=== PATIENT | female | born 1960 | race Caucasian/White ===

== ENCOUNTER 2017-07-23 10:28 | Inpatient (IN) | payer OTHER ==
[~2017-07-23] VITALS: Ht 165.1 cm; Wt 60.3 kg
[2017-07-23] MEDS ORDERED: LEVOTHYROXINE75 MCG PO (10:36)
--- NOTE | 2017-07-23 10:42 | ED UPPER/LOWER EXTREMITY COMPL ---
History of Present Illness General Chief Complaint: Fall Stated Complaint: RIGHT ARM PAIN, S/P FALL Source: patient Exam Limitations: no limitations Vital Signs & Intake/Output Vital Signs & Intake/Output Vital Signs Date Time Temp Pulse Resp B/P B/P Pulse O2 O2 Flow FiO2 Mean Ox Delivery Rate 07/23 1457 97.6 56 20 113/55 95 Room Air 07/23 1202 97.0 07/23 1038 97.0 60 16 169/91 98 Allergies Coded Allergies: NO KNOWN ALLERGIES (07/09/13) Reconcile Medications Levothyroxine Sodium 75 MCG TABLET 1 TAB PO DAILY HYPOTHYROID (Reported) Triage Note: 57F SLIPPED ON ICE AND FELL IN RIGHT SHOULDER, DENIES HEADSTRIKE. C/O PAIN TO RIGHT KNEE AND ANKLE AT THIS TIME. DENIES C-SPINE TENDERNESS. 04/10 PAIN. Triage Nurses Notes Reviewed? yes Onset: Abrupt Duration: constant Timing: single episode today Severity: severe Severity Numbers: 10 HPI: Patient is a 57-year-old female with past medical history of hypothyroidism who presents emergency and that while ambulating outside on ice she fell landed to the right lateral aspect of her body resulting acute onset of right shoulder right knee and ankle pain. Patient denies any preceding episode of lightheaded sensation or dizziness, denies any head strike headache neck or back pain denies any abdominal chest or hip pain. Patient does state that she was on her way to a calling our service for her [id number] which she states that earlier in the morning she did smoke marijuana (Vincent Doyle) Past History Travel History Traveled to [place] past 21 day No Medical History Any Pertinent Medical History? see below for history Neurological: NONE EENT: NONE Cardiovascular: NONE Respiratory: NONE Gastrointestinal: NONE Hepatic: NONE Renal: NONE Musculoskeletal: NONE Psychiatric: NONE Endocrine: hypothyroidism Surgical History Surgical History: non-contributory Psychosocial History What is your primary language Dutch Tobacco Use: Never used ETOH Use: denies use Illicit Drug Use: denies illicit drug use Family History Hx Contributory? No (Vincent Doyle) Review of Systems Review of Systems Constitutional: Reports: no symptoms. EENTM: Reports: no symptoms. Respiratory: Reports: no symptoms. Cardiovascular: Reports: no symptoms. Gastrointestinal/Abdominal: Reports: no symptoms. Genitourinary: Reports: no symptoms. Musculoskeletal: Reports: see HPI, joint pain, muscle pain. Skin: Reports: no symptoms. Neurological/Psychological: Reports: no symptoms. Hematologic/Endocrine: Reports: no symptoms. Immunological: Reports: no symptoms. All Other Systems: Reviewed and Negative (Vincent Doyle) Physical Exam Physical Exam General Appearance: moderate distress Head: atraumatic Eyes: Bilateral: normal appearance, PERRL. Ears, Nose, Throat: hearing grossly normal Neck: normal inspection, no midline tenderness Cardiovascular/Respiratory: normal breath sounds, normal peripheral pulses, no respiratory distress Peripheral Pulses: 2+ radial (R), 2+ radial (L), 2+ dorsalis pedis (R), 2+ dorsalis pedis (L) Back: normal inspection, no vertebral tenderness Shoulder Left: normal range of motion, normal inspection Shoulder Right: bone tenderness Elbow Left: normal range of motion, normal inspection Elbow Right: normal inspection Hand Left: normal inspection, normal range of motion Hand Right: normal inspection, normal range of motion Hip Left: normal range of motion, normal inspection Hip Right: normal range of motion, normal inspection Knee Left: normal inspection, tenderness Neurologic/Tendon: normal sensation, normal motor functions, normal tendon functions, responds to pain, no evidence tendon injury, no pulse deficit Skin: intact, normal color, warm/dry Comments: Right ankle - point tenderness noted mild swelling Right foot normal inspection nontender pedal pulse +2 (Vincent Doyle) Progress Differential Diagnosis: arterial insufficiency, compartment syndrome, contusion, dislocation, DVT, fracture, gout, septic arthritis, sprain, tendon injury Plan of Care: Orders Procedure Date/time Status Regular Diet 07/23 L Complete Nothing by Mouth 07/23 D Active CULTURE,URINE 07/23 1437 Active URINALYSIS 07/23 1437 Complete Pathway - chart 07/23 1413 Active Patient Data 07/23 1413 Active Code Status 07/23 1413 Active Patient Data 07/23 1409 Active Mckeon, Insertion/Removal/Asses 07/23 1258 Active OXYGEN SETUP (GEN) 07/23 1237 Active Saline Lock 07/23 1237 Active Vital Signs 07/23 1237 Active Activity/Ambulation 07/23 1237 Active Code Status 07/23 1237 Complete Durable Medical Equipment 07/23 1234 Active Add-on Test (ER Only) 07/23 1234 Active COMPREHENSIVE METABOLIC PANEL 07/23 1131 Complete CREATINE PHOSPHOKINASE 07/23 1131 Complete CBC WITHOUT DIFFERENTIAL 07/23 1131 Complete EKG 07/23 1131 Active PARTIAL THROMBOPLASTIN TIME 07/23 1130 Complete PROTHROMBIN TIME 07/23 1130 Complete TYPE & SCREEN (NOT X-MATCH) 07/[address] in observation 07/23 UNK Active VTE Mechanical Prophylaxis 07/23 UNK Active Vital Signs 07/23 UNK Active Intake & Output 07/23 UNK Active Mckeon, Insertion/Removal/Asses 07/23 UNK Active Activity/Ambulation 07/23 UNK Active Current Medications Sig/Андрей Start time Last Medication Dose Stop Time Status Admin Dextrose/Lactated 1,000 ML Q10H 07/23 1415 AC Ringer's (D5W in Lactated Ringers) Hydromorphone HCl 1 MG Q2-3 HRS NEEDED.. 07/23 1415 AC (Dilaudid) Lorazepam 0.5 MG Q4P PRN 07/23 141 AC (Ativan) Ondansetron HCl 4 MG Q6-PRN PRN 07/23 141 AC (Zofran) Laboratory Tests 07/23/17 1430: Urinalysis LIGHT H, Urine Color YEL, Urine Clarity HAZY H, Urine pH 6.5, Ur Specific [place] 1.020, Urine Protein NEG, Urine Ketones NEG, Urine Nitrite NEG, Urine Bilirubin NEG, Urine Urobilinogen 0.2, Ur Leukocyte Esterase NEG, Ur Microscopic SEDIMENT EXAMINED, Urine RBC RARE, Urine WBC 1-3 H, Ur Epithelial Cells FEW, Urine Bacteria FEW H, Urine Hemoglobin NEG, Urine Glucose NEG 07/23/17 1234: PT Cancelled, INR Cancelled, APTT Cancelled 07/23/17 1130: Anion Gap 15, Estimated GFR > 60, BUN/Creatinine Ratio 24.3, Glucose 158 H, Calcium 9.5, Total Bilirubin 0.3, AST 23, ALT 31, Alkaline Phosphatase 57, Creatine Kinase 118, Total Protein 7.5, Albumin 4.6, Globulin 2.9, Albumin/ Globulin Ratio 1.6, PT 11.5, INR 1.10, APTT 26, CBC w Diff NO MAN DIFF REQ, RBC 4.38, MCV 89.6, MCH 30.2, RDW 13.1, MPV 8.2, Gran % 80.6 H, Lymphocytes % 13.1 L, Monocytes % 4.7, Eosinophils % 1.2, Basophils % 0.4, Absolute Granulocytes 11.3 H, Absolute Lymphocytes 1.8, Absolute Monocytes 0.7 H, Absolute Eosinophils 0.2, Absolute Basophils 0.1, PUBS MCHC 33.8 Microbiology 07/23 1430 URINE ROUT: Urine Culture - RECD Patient's upper extremity and lower extremity the right side was neurovascularly intact however there is concerns of right shoulder fracture knee and ankle fracture on exam X-rays shows concerns of comminuted right humeral fracture with known anterior dislocation and right displaced fibular fracture Subtle findings of medial pole of patella avulsion fracture and medial malleoli fracture Discussed results with Dr. Martel who advised patient to receive CT scan noncontrast of the right shoulder have shoulder immobilizer placed knee immobilizer placed and posterior right ankle splint to be placed He advised patient to be nothing by mouth and will perform surgical correction of right ankle and reduction to right shoulder and the OR later on today Discussed disposition and results with patient who was aware Patient did have intermittent relief with pain medications Diagnostic Imaging: Viewed by Me: Radiology Read. Radiology Impression: acute abnormality, fracture Initial ED EK BPM,LVH Comments: PATIENT: MARIO TILLMAN PRESENT AGE: 57 PATIENT ACCOUNT NO: [id number] : 56 LOCATION: [facility] ORDERING PHYSICIAN: Vincent DON SERVICE DATE: 07/23/17 EXAM TYPE: RAD - XRY-TWO VIEW RIGHT ANKLE EXAMINATION: XR ANKLE, RIGHT CLINICAL INFORMATION: Pain status post fall. Rule out subluxation COMPARISON: None TECHNIQUE: AP, lateral, and mortise views of the right ankle. FINDINGS: There is an oblique Lainez B fracture of the distal fibula with posterolateral displacement of the distal fragment by 1 mm. There is a small age-indeterminate avulsion fracture fragment at the tip of the medial malleolus. There is widening of the medial joint space. Soft tissues are swollen. Moderate sized enthesopathic spur is present at the plantar fascial origin on the calcaneus. IMPRESSION: 1. Acute oblique minimally displaced Lainez B fracture of the distal fibula. 2. Small avulsion fracture at the tip of the medial malleolus, potentially acute. Subtle widening of the medial ankle mortise. DICTATED BY: Mejia Luna MD DATE/TIME DICTATED:07/23/171141 ADOPTION WORKER:SUZANNE DATE/TIME TRANSCRIBED:07/23/171141 CONFIDENTIAL, DO NOT COPY WITHOUT APPROPRIATE AUTHORIZATION. <Electronically signed in Other Vendor System> SIGNED BY: Mejia Luna MD 07/23/171147 PATIENT: MARIO TILLMAN PRESENT AGE: 57 PATIENT ACCOUNT NO: [id number] : 56 LOCATION: [facility] ORDERING PHYSICIAN: Vincent DON SERVICE DATE: 07/23/17 EXAM TYPE: RAD - XRY-KNEE, RIGHT EXAMINATION: XR KNEE, RIGHT CLINICAL INFORMATION: Pain after hyperextension and fall. Rule out subluxation. COMPARISON: None TECHNIQUE: AP, lateral, and both oblique views of the right knee. FINDINGS: Small ossific fragments are present at the medial margin of the patella, most compatible with a avulsion injury from the transient patellar subluxation. No additional fractures are identified. There is a small joint effusion. There is mild tricompartmental degenerative arthritis with marginal osteophytes. Articular surface irregularity is present at the patella with probable joint space narrowing. IMPRESSION: 1. Subtle avulsed cortical fragment at the medial margin of the patella, likely due to avulsion of the medial patellofemoral ligament attachment as part of a transient patellar dislocation/relocation injury. 2. Small effusion 3. Mild tricompartmental osteoarthritis, most notably in the patellofemoral compartment DICTATED BY: Mejia Luna MD PATIENT: MARIO TILLMAN PRESENT AGE: 57 PATIENT ACCOUNT NO: [id number] : 56 LOCATION: ER ORDERING PHYSICIAN: Vincent DON SERVICE DATE: 07/23/17 EXAMINATION: XR SHOULDER, RIGHT CLINICAL INFORMATION: Pain and immobility status post fall. Rule out subluxation COMPARISON: None TECHNIQUE: Three views of the right shoulder. FINDINGS: There is a comminuted fracture of the proximal humerus with an oblique/transverse component through the surgical neck and a sagittal component through the greater tuberosity. A lesser tuberosity component is not identified. As seen on the scapular Y view, there is apex posterior angulation of the humeral neck fracture by 55 degrees. Humeral shaft fragment by 1 cm. Displacement of the greater tuberosity fragment appears less pronounced. There is anterior dislocation of the humeral head at the glenohumeral joint. Acromioclavicular joint is unremarkable. Soft tissues are swollen. IMPRESSION: 1. Comminuted proximal humeral fracture with displacement and angulation at the humeral neck component, at least a Neer two-part fracture. 2. Anterior dislocation of the humeral head DICTATED BY: Mejia Luna MD DATE/TIME DICTATED:07/23/171143 ADOPTION WORKER:SUZANNE (Vincent Doyle) Departure Departure Disposition: STILL A PATIENT Condition: Stable Clinical Impression Primary Impression: Fracture of distal end of right fibula Secondary Impressions: Dislocation, shoulder, anterior, Fall, Fracture of medial malleolus of right tibia, Fracture of proximal end of right humerus, Right patella fracture Departure Forms: Customer Survey General Discharge Information Admission Note Spoke With: Ad Martel MD Documentation of Exam: Documentation of any treatments & extenuating circumstances including Concerns Regarding Discharge (functional status, medication knowledge or non-compliance, living conditions, etc.) that warrant an admission rather than observation: [ Patient requires IV pain management, surgical intervention, orthopedic consultation and possible short-term rehabilitation] (Vincent Doyle) PA/TREE KILLER Co-Sign Statement Statement: ED Attending supervision documentation- x I saw and evaluated the patient. I have also reviewed all the pertinent lab results and diagnostic results. I agree with the findings and the plan of care as documented in the PA's/TREE KILLER's documentation. Fall fx comminuted fx/dislocation R shoulder, patella, ankle [] I have reviewed the ED Record and agree with the PA's/TREE KILLER's documentation. [] Additions or exceptions (if any) to the PAs/TREE KILLER's note and plan are summarized below: [] (Jace RHODES,Shaquille) Procedures Splinting Location: RIGHT SHOULDER, KNEE AND ANKLE Manual Alignment Performed: No Pre-Made Type: knee imobilizer Hand-Made Type: orthoglass Splint Applied By: splint applied by other Pre-Proc Neuro Vasc Exam: normal Post-Proc Neuro Vasc Exam: normal (iVncent Doyle) Critical Care Note Critical Care Note Critical Care Time: 30-74 min (Vincent Doyle)
--- NOTE | 2017-07-23 11:46 | RADIOLOGY REPORT ---
EXAMINATION: XR KNEE, RIGHT CLINICAL INFORMATION: Pain after hyperextension and fall. Rule out subluxation. COMPARISON: None TECHNIQUE: AP, lateral, and both oblique views of the right knee. FINDINGS: Small ossific fragments are present at the medial margin of the patella, most compatible with a avulsion injury from the transient patellar subluxation. No additional fractures are identified. There is a small joint effusion. There is mild tricompartmental degenerative arthritis with marginal osteophytes. Articular surface irregularity is present at the patella with probable joint space narrowing. IMPRESSION: 1. Subtle avulsed cortical fragment at the medial margin of the patella, likely due to avulsion of the medial patellofemoral ligament attachment as part of a transient patellar dislocation/relocation injury. 2. Small effusion 3. Mild tricompartmental osteoarthritis, most notably in the patellofemoral compartment
--- NOTE | 2017-07-23 11:48 | RADIOLOGY REPORT ---
EXAMINATION: XR ANKLE, RIGHT CLINICAL INFORMATION: Pain status post fall. Rule out subluxation COMPARISON: None TECHNIQUE: AP, lateral, and mortise views of the right ankle. FINDINGS: There is an oblique Lainez B fracture of the distal fibula with posterolateral displacement of the distal fragment by 1 mm. There is a small age-indeterminate avulsion fracture fragment at the tip of the medial malleolus. There is widening of the medial joint space. Soft tissues are swollen. Moderate sized enthesopathic spur is present at the plantar fascial origin on the calcaneus. IMPRESSION: 1. Acute oblique minimally displaced Lainez B fracture of the distal fibula. 2. Small avulsion fracture at the tip of the medial malleolus, potentially acute. Subtle widening of the medial ankle mortise.
--- NOTE | 2017-07-23 11:51 | RADIOLOGY REPORT ---
EXAMINATION: XR SHOULDER, RIGHT CLINICAL INFORMATION: Pain and immobility status post fall. Rule out subluxation COMPARISON: None TECHNIQUE: Three views of the right shoulder. FINDINGS: There is a comminuted fracture of the proximal humerus with an oblique/transverse component through the surgical neck and a sagittal component through the greater tuberosity. A lesser tuberosity component is not identified. As seen on the scapular Y view, there is apex posterior angulation of the humeral neck fracture by 55 degrees. Humeral shaft fragment by 1 cm. Displacement of the greater tuberosity fragment appears less pronounced. There is anterior dislocation of the humeral head at the glenohumeral joint. Acromioclavicular joint is unremarkable. Soft tissues are swollen. IMPRESSION: 1. Comminuted proximal humeral fracture with displacement and angulation at the humeral neck component, at least a Neer two-part fracture. 2. Anterior dislocation of the humeral head
[2017-07-23 11:59] LABS: ABSOLUTE BASOPHIL COUNT 0.1 /CUMM (0.0-0.2); ABSOLUTE EOSINOPHIL COUNT 0.2 /CUMM (0.0-0.7); ABSOLUTE GRANULOCYTE CT 11.3 /CUMM (1.4-6.5); ABSOLUTE LYMPH COUNT 1.8 /CUMM (1.2-3.4); ABSOLUTE MONOCYTE COUNT 0.7 /CUMM (0.10-0.60); BASOPHIL % 0.4 % (0.0-2.0); EOSINOPHIL % 1.2 % (0-5); HEMATOCRIT 39.2 % (37-47); MEAN CORPUSCULAR HGB 30.2 PG (27.0-31.0); MEAN CORPUSCULAR HGB CONC 33.8 G/DL (33.0-37.0); MEAN CORPUSCULAR VOLUME 89.6 FL (81.0-99.0); MEAN PLATELET VOLUME 8.2 FL (7.4-10.4); PLATELET COUNT 304 /CUMM (130-400); RBC DISTRIBUTION WIDTH 13.1 % (11.5-14.5); RED BLOOD CELL CT 4.38 /CUMM (4.20-5.40)
[2017-07-23 12:14] LABS: GRANULOCYTE % 80.6 % (42.2-75.2)
[2017-07-23 12:54] LABS: PT 11.5 SEC (9.4-12.5); PTT 26 SEC (25-37)
--- NOTE | 2017-07-23 13:19 | Admission Core Measures ---
Acute Coronary Syndrome (CM) ACS Core Measures Acute Coronary Syndrome Diagnosis No Congestive Heart Failure (NEW) CHF Core Measures Congestive Heart Failure Diagnosis No Cerebrovascular Accident (NEW) CVA Core Measures CVA/TIA Diagnosis No Venous Thromboembolism VTE Core Karen (View Protocol) VTE Risk Factors Surgery No Mechanical VTE Prophylaxis d/t N/A MechProphylax Ordered No VTE Pharm Prophylaxis d/t NA PharmProphylax ordered Problem List As ranked by this Provider includes Assessment & Plan 1. Fracture of distal end of right fibula 2. Right patella fracture 3. Dislocation, shoulder, anterior 4. Fracture of proximal end of right humerus 5. Fracture of medial malleolus of right tibia 6. Fall HOME MEDS Home Med List Levothyroxine Sodium 75 MCG TABLET 1 TAB PO DAILY HYPOTHYROID (Reported)
--- NOTE | 2017-07-23 13:19 | History & Physical Pre-Op ---
Sena Goode 07/23/17 1318: General Information and HPI History of Present Illness: 57yoF presents to ED after mechanical slip and fall on the ice this morning. She was walking outside to nearby family member's home to attend family member's service, slipped on ice and lost her footing. She landed very hard on her right side, and complains of right shoulder and lower leg pain. She denies head injury or LOC. Denies CP/SOB/Palps/dizziness at time of fall. Her main complaint is right shoulder pain, and is unable to get comfortable despite pain medication in ED. She denies any other complaints at this time. 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 smokes MJ multiple times per day. Drinks 2-3 beers per day. No tobacco. Allergies/Medications Allergies: Coded Allergies: NO KNOWN ALLERGIES (07/09/13) Home Med list Levothyroxine Sodium 75 MCG TABLET 1 TAB PO DAILY HYPOTHYROID (Reported) Past History Medical History Endocrine: hypothyroidism Surgical History Pertinent Surgical History: laparoscopy x3 for [employer]person [employer] fertility workup Past Family/Social History Psychosocial History Smoking Status: Never Smoked (no tobacco use) ETOH Use: daily drinker, 2-3 beers Illicit Drug Use: marijuana (few times daily) Functional Ability Ambulation: independent Exam & Diagnostic Data Last 24 Hrs of Vital Signs/I&O Vital Signs Date Time Temp Pulse Resp B/P B/P Pulse O2 O2 Flow FiO2 Mean Ox Delivery Rate 07/23 1202 97.0 07/23 1038 97.0 60 16 169/91 98 Intake & Output 07/23 1600 07/23 0800 07/23 0000 Intake Total 120 Output Total Balance 120 Intake, Oral 120 Patient 133 lb Weight Physical Exam: gen- nad card-rrr pulm- no audible wheeze abd- soft nt ext: R shoulder: +edema, no mobility assessed due to pain/injury, very ttp. R elbow: limited motor due to pain R wrist: some edema medially, +edema at index/middle MCPs, no point tenderness, gross motor and sensation intact, palp radial pulse RLE: knee slightly ttp. in splint. ROM not assessed other than +toe movement. gross sensory intact toes. palp dp pulse. LLE: calf soft nt, no lesions, nontender Last 24 Hrs of Labs/Rishabh: Laboratory Tests 07/23/17 1234: PT Cancelled, INR Cancelled, APTT Cancelled 07/23/17 1130: Anion Gap 15, Estimated GFR > 60, BUN/Creatinine Ratio 24.3, Glucose 158 H, Calcium 9.5, Total Bilirubin 0.3, AST 23, ALT 31, Alkaline Phosphatase 57, Creatine Kinase 118, Total Protein 7.5, Albumin 4.6, Globulin 2.9, Albumin/ Globulin Ratio 1.6, PT 11.5, INR 1.10, APTT 26, CBC w Diff NO MAN DIFF REQ, RBC 4.38, MCV 89.6, MCH 30.2, RDW 13.1, MPV 8.2, Gran % 80.6 H, Lymphocytes % 13.1 L, Monocytes % 4.7, Eosinophils % 1.2, Basophils % 0.4, Absolute Granulocytes 11.3 H, Absolute Lymphocytes 1.8, Absolute Monocytes 0.7 H, Absolute Eosinophils 0.2, Absolute Basophils 0.1, PUBS MCHC 33.8 Diagnostic Data Other Results CT R shoulder: pending EXAM TYPE: RAD - XRY-TWO VIEW RIGHT ANKLE EXAMINATION: XR ANKLE, RIGHT CLINICAL INFORMATION: Pain status post fall. Rule out subluxation COMPARISON: None TECHNIQUE: AP, lateral, and mortise views of the right ankle. FINDINGS: There is an oblique Lainez B fracture of the distal fibula with posterolateral displacement of the distal fragment by 1 mm. There is a small age-indeterminate avulsion fracture fragment at the tip of the medial malleolus. There is widening of the medial joint space. Soft tissues are swollen. Moderate sized enthesopathic spur is present at the plantar fascial origin on the calcaneus. IMPRESSION: 1. Acute oblique minimally displaced Lainez B fracture of the distal fibula. 2. Small avulsion fracture at the tip of the medial malleolus, potentially acute. Subtle widening of the medial ankle mortise. EXAM TYPE: RAD - XRY-KNEE, RIGHT EXAMINATION: XR KNEE, RIGHT CLINICAL INFORMATION: Pain after hyperextension and fall. Rule out subluxation. COMPARISON: None TECHNIQUE: AP, lateral, and both oblique views of the right knee. FINDINGS: Small ossific fragments are present at the medial margin of the patella, most compatible with a avulsion injury from the transient patellar subluxation. No additional fractures are identified. There is a small joint effusion. There is mild tricompartmental degenerative arthritis with marginal osteophytes. Articular surface irregularity is present at the patella with probable joint space narrowing. IMPRESSION: 1. Subtle avulsed cortical fragment at the medial margin of the patella, likely due to avulsion of the medial patellofemoral ligament attachment as part of a transient patellar dislocation/relocation injury. 2. Small effusion 3. Mild tricompartmental osteoarthritis, most notably in the patellofemoral compartment EXAM TYPE: RAD - XRY-SHOULDER COMPLETE-RIGHT EXAMINATION: XR SHOULDER, RIGHT CLINICAL INFORMATION: Pain and immobility status post fall. Rule out subluxation COMPARISON: None TECHNIQUE: Three views of the right shoulder. FINDINGS: There is a comminuted fracture of the proximal humerus with an oblique/transverse component through the surgical neck and a sagittal component through the greater tuberosity. A lesser tuberosity component is not identified. As seen on the scapular Y view, there is apex posterior angulation of the humeral neck fracture by 55 degrees. Humeral shaft fragment by 1 cm. Displacement of the greater tuberosity fragment appears less pronounced. There is anterior dislocation of the humeral head at the glenohumeral joint. Acromioclavicular joint is unremarkable. Soft tissues are swollen. IMPRESSION: 1. Comminuted proximal humeral fracture with displacement and angulation at the humeral neck component, at least a Neer two-part fracture. 2. Anterior dislocation of the humeral head Assessment/Plan Assessment/Plan: A: 57yoF PMHx hypothyroidism, daily drinker and daily MJ smoker, s/p mechanical fall this morning with R shoulder dislocation, R humerus fx, possible R knee subluxation, R tib/fib fx of ankle, with significant pain. P- - NPO, IVF - prn pain meds, antianxiolytics - bedrest - shah - splint in place RLE, ?sling RUE - OR tonight for ORIF - Dr. Martel to see. - admission vs observation to be determined postop As Ranked By This Provider Problem List: 1. Dislocation, shoulder, anterior 2. Fracture of proximal end of right humerus 3. Fracture of medial malleolus of right tibia 4. Fracture of distal end of right fibula 5. Fall 6. Patellar subluxation Ad Martel MD 07/23/171939: Attending MD Review Statement Attending Statement Attending MD Statement: examined this patient, discuss w/resident/PA/HOME TEACHING GRADES 9 THRU 12 TEACHER, agreed w/resident/PA/HOME TEACHING GRADES 9 THRU 12 TEACHER, discussed with family
--- NOTE | 2017-07-23 14:16 | CT SCAN REPORT ---
EXAMINATION: CT UPPER EXTREMITY WITHOUT CONTRAST, RIGHT CLINICAL INFORMATION: Right shoulder anterior dislocation/comminuted fracture. COMPARISON: X-rays of the right shoulder earlier the same day. TECHNIQUE: Helical scanning was performed with submillimeter collimation in the axial plane with multiplanar 2-D reconstructions. DLP: 383.64 mGy-cm FINDINGS: There is an anterior dislocation of the humeral head. There is a fracture fragment involving the posterior aspect of the humeral head medially and inferiorly displaced. The anterior margin of the glenoid is also fractured and blunted as well as impacted into the posterior aspect of the humeral head. There is a comminuted fracture of the right proximal humerus which predominately involves the surgical neck with a sagittally oriented vertical extension through the greater tuberosity which is also mildly comminuted. There is displacement and angulation of the major greater tuberosity fragments. This results in greater lateral displacement posteriorly of approximately 1.3 cm. The major distal fracture fragment is mildly anteriorly and medially angulated. There is up to 1.2 cm of anterior displacement of the major distal fracture fragment and minimal lateral displacement. There is mild cystic change in the inferior glenoid consistent with pre-existing degenerative change. IMPRESSION: Fracture dislocation of the right shoulder as described above. There is an impacted fracture of the anteroinferior glenoid. There is a comminuted, displaced, and angulated fracture of the right proximal humerus predominately involving the surgical neck through the greater tuberosity.
--- NOTE | 2017-07-23 19:55 | RADIOLOGY REPORT ---
EXAMINATION: XR ANKLE, RIGHT CLINICAL INFORMATION: Right ankle ORIF COMPARISON: 07/23/2017 TECHNIQUE: 3 views, 6 fluoroscopic images of the right ankle. Total fluoroscopic time 38.5 seconds.. FINDINGS: There is lateral fixation hardware placed across the distal fibular fracture. Alignment is anatomic. Ankle mortise appears congruent. Plantar heel spur noted. IMPRESSION: Fluoroscopic guidance for internal fixation of the distal fibular fracture with anatomic alignment. Please refer to operative report for further details.
--- NOTE | 2017-07-23 20:01 | Operative Report ---
Operative/Inv Procedure Report Surgery Date: 07/23/17 Name of Procedure: 1) Open reduction internal fixation right ankle lateral malleolus fracture with plate and screw fixation. 2) Closed reduction right shoulder comminuted proximal humeral fracture- dislocation under general anesthesia. Pre-Operative Diagnosis: 1) Right ankle minimally displaced short oblique Lainez type B lateral malleolus fracture. 2) Right shoulder comminuted 3 part proximal humeral fracture dislocation. Post-Operative Diagnosis: Same. Estimated Blood Loss: scant Surgeon/Examination Scorer: Tahmina RHODES,Ad /Jonny OKEEFE Anesthesia: general endotracheal tube, block Monitors: EKG/BP/O2 Saturation IV Fluids: Lactated Ringer's. Implants: [place] Variax precontoured 4 hole lateral malleolus plate with combination of cortical and locking screws. Urine Output: Adequate. Drains: Mckeon to gravity. Specimens: None. Microbiology: None. Tourniquet: 74 minutes at 300 mmHg. Complications: None known. Condition: Stable. 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 The patient was seen and evaluated in the emergency room. X- rays of the right shoulder showed a comminuted displaced fracture dislocation of the proximal humerus. X-rays of the patient's right knee showed an equivocal minor avulsion fracture of the superomedial pole of the patella. X-rays of the patient's right ankle showed a short oblique Lainez type B minimally displaced lateral malleolus fracture. The patient's right ankle was splinted in the emergency room. She was sent for a CAT scan of the right shoulder which again showed a comminuted, displaced fracture dislocation of the proximal humerus. The patient was admitted to my service for management and treatment. Given that this was a multitrauma I did recommend surgical intervention with formal ORIF of the right ankle fracture. I did also indicate to the patient that I would like to attempt a closed reduction of the right shoulder proximal humerus fracture and see how things look and take things from there. She was advised that depending on what happened with a closed reduction of the right shoulder under general anesthesia that she might require additional surgery on the right shoulder which could include a possible ORIF or possible humeral arthroplasty. We did discuss the risks and benefits and expected outcomes of nonoperative management related to both the right shoulder proximal humerus fracture as well as the right ankle lateral malleolus fracture. We did also discuss the same with respect to surgical intervention with an ORIF of the right ankle and then attempted closed reduction of the right shoulder. All of the patient's questions and her 's questions were answered at length. They did wish to move forward with surgery on both the right ankle and the right shoulder as was recommended and surgical consent was obtained from the . Operative/Procedure Note Note: The patient was brought to the operating room and transferred to the OR table. She was then positioned with multiple assistance in the left lateral decubitus position at which time the anesthesiologist administered a regional block to the right lower extremity at the level of the right knee. Once the block was placed the patient was returned to the supine position. All bony prominences were well -padded. General endotracheal anesthesia was induced by the anesthesiologist. A dose of IV antibiotics were given for infection prophylaxis. The contralateral left lower extremity was placed into a calf compression sleeve to minimize venous pooling and hopefully cutdown on risk of blood clot formation and propagation. Our attention was first directed at the patient's right shoulder where I did want to attempt a closed reduction trying to get the humeral head generally back into the glenoid fossa. With the patient under general anesthesia with maximal muscle relaxation the right shoulder was manipulated by applying slight abduction traction in a position of about 45 humeral elevation and slight anterior flexion while stabilizing the thorax and also while stabilizing and manipulating the humeral head pushing the humeral head towards the glenoid fossa using my other hand. The humeral head relocated with a very satisfactory visible and audible and palpable reduction clunk. The right upper extremity was placed into an arm sling. We did obtain post reduction fluoroscopic AP image of the right shoulder which showed a surprisingly nice reduction of the humeral head back into the glenoid fossa along with a very nice overall baptism of fracture fragment alignment and overall length through the comminuted proximal humeral fracture fragments. This image was taken and saved for hard copy. Our attention was now directed towards the right lower extremity. A well-padded tourniquet was applied to the proximal portion of the right thigh. The right lower extremity was then prepped and draped in the usual sterile fashion. The bony landmarks for the lateral malleolus were marked on the skin at the lateral ankle as were the planned surgical incision for the lateral approach to the lateral malleolus. This was a longitudinal skin incision which was curved gently anteriorly as we crossed the inferior tip of the lateral malleolus. Once the extremity was marked the extremity was exsanguinated and the pneumatic tourniquet was inflated to a pressure of 3 and a millimeters mercury. The skin incision was created with a #15 scalpel blade. Sharp dissection was continued down through the skin and superficial subcutaneous tissues. After that dissection was somewhat blunted with a combination of fingertip dissection along with blunt tip scissor dissection. We did identify the superficial peroneal nerve towards the proximal and of the wound and this was retracted and protected throughout the remainder of the case. As we came down to the periosteal tissue layer we did see disruption of the periosteum over the fracture site. I did elevate the periosteal tissue off of the lateral cortex of the lateral malleolus primarily about the fracture site itself but also distal and proximal to gain good visualization of the fracture site as well as to allow good placement of the lateral plate and screws. The fracture site was opened up with a dental pick. The fracture site was then cleaned out of minor bone fragments and blood clot and debris with a combination of a small curette and irrigation. The fracture was then reduced with a fracture reduction clamp. I did attempt to place a 3.5 mm cortical screw in lag fashion as a lag screw to compress the fracture fragments. Unfortunately this resulted in some anterior comminution of the proximal aspect of the fracture which thereby did not allow me to ultimately place a lag screw. With the fracture still overall nicely reduced I selected a [place] Variax 4 hole precontoured lateral malleolus plate which I applied down onto the lateral aspect of the lateral malleolus and the lateral aspect of the distal fibular shaft. The plate was pinned provisionally with multiple olive- tipped K wires. This was done under fluoroscopic control. We were satisfied with the positioning of the plate and we next turned our attention towards fixation of the plate to the bone. We began through the proximal screw holes in the plate. The plate was sucked down to the lateral cortex of the distal fibular shaft using multiple cortical screws. We next turned our attention towards the distal end of the plate where we filled the cloverleaf portion of the plate with unicortical locking screws of appropriate length. We felt some additional screw holes in between leaving 1 screw hole open which was located directly over the oblique lateral malleolus fracture site. We obtained final AP and lateral and mortise view fluoroscopic images which were felt to demonstrate a very nicely achieved fracture reduction, alignment, and length of the lateral malleolus fracture as well as nice demonstration of plate position and fixation. These images were also saved for hard copy. Our attention was now directed towards closure. The wound was copiously irrigated multiple times. The tourniquet was deflated. Hemostasis was achieved with a combination of manual pressure and electrocautery. The wound was irrigated again. The soft tissue repair consisted of use of 0 Vicryl placed in interrupted buried fashion for the deeper tissues making sure to not injure the superficial peroneal nerve proximally. The more superficial subcutaneous tissues were approximated using 2 -0 Vicryl also placed in interrupted buried fashion. The skin margins were then approximated using a skin stapler. The wound was washed and dried. Adaptic nonadherent dressing was placed over the staple line. This was followed by sterile fluff gauze dressings followed by wrapping the ankle with a Kerlix gauze wrap to hold the fluff dressings in place. The extremity was then wrapped from just about the toes distally to the upper calf proximally with web roll cast padding. We next applied a 4 inch fiberglass posterior splint which was secured with Paul bandages and allowed to set up with the splint in neutral ankle dorsiflexion position. The patient was awakened from general anesthesia and then transferred to the hospital stretcher and brought to the recovery room in stable condition having tolerated the procedure well. Findings: 1) Acceptable fracture reduction, alignment, and length achieved right ankle lateral malleolus fracture. 2) Acceptable hardware position and fixation achieved right ankle lateral malleolus fracture. 3) Significantly improved and overall very acceptable fracture reduction, alignment, and length achieved at the right shoulder proximal humeral fracture dislocation.
--- NOTE | 2017-07-23 20:36 | RADIOLOGY REPORT ---
EXAMINATION: XR SHOULDER, RIGHT CLINICAL INFORMATION: Right shoulder reduction. COMPARISON: 07/23/2017 TECHNIQUE: Single fluoroscopic view of the of the right shoulder. Total fluoroscopic time 38.5 seconds. FINDINGS: The submitted image demonstrates a proximal right humeral fracture with improved alignment compared to the prior study. Greater tuberosity fragment is now near-anatomic. There is mild impaction at the fracture site. The glenohumeral joint is aligned. IMPRESSION: Improved alignment of the proximal right humeral fracture post reduction.
--- NOTE | 2017-07-23 20:56 | PN- Orthopedic ---
Subjective Subjective: Post op check Awake and alert post op Pain tolerable at this time Denies nausea, tolerating liquids Objective Vital Signs and I&Os Vital Signs Date Time Temp Pulse Resp B/P B/P Pulse O2 O2 Flow FiO2 Mean Ox Delivery Rate 07/23 1559 60 16 125/64 94 Room Air 07/23 1457 97.6 56 20 113/55 95 Room Air 07/23 1202 97.0 07/23 1038 97.0 60 16 169/91 98 Intake & Output 07/23 1600 07/23 0800 07/23 0000 07/22 1600 07/22 0800 07/22 0000 Intake Total 120 Output Total Balance 120 Intake, Oral 120 Patient 133 lb Weight Physical Exam: vss, afebrile General: alert and oriented times three Chest; clear anteriorly bilaterally, RRR Abd: soft, good bs Ext: warm, no edema, RUE in sling, hand is warm with good instrumentation technologist, RLE dressed in JG - elevated/ice pack in place Wd: dressing is dry Assessment/Plan Assessment/Plan 57yo female admitted with Pre-Operative Diagnosis: 1) Right ankle minimally displaced short oblique Lainez type B lateral malleolus fracture. 2) Right shoulder comminuted 3 part proximal humeral fracture dislocation. Now s/p 1) Open reduction internal fixation right ankle lateral malleolus fracture with plate and screw fixation. 2) Closed reduction right shoulder comminuted proximal humeral fracture- dislocation under general anesthesia. Plan is for pain control overnight Pt will be nonweight bear to RUE and RLE for at least 6 weeks asa 325mg po bid for dvt ppx PT/OT to see in am for discharge recommendations abx for 24 hrs Core Measures Venous Thromboembolism VTE Risk Factors Surgery No Mechanical VTE Prophylaxis d/t N/A MechProphylax Ordered No VTE Pharm Prophylaxis d/t NA PharmProphylax ordered
[2017-07-24 06:50] VITALS: BP 100/50
--- NOTE | 2017-07-24 07:00 | PN- Student ---
Socrates Fuller 07/24/17 0646: Subjective Subjective: Pt to the floors last night after R closed shoulder reduction and R open distal fibular reduction. Pt was vomitting post op x 2 hours but has since resolved stating 'I've never tolerated anesthesia well.' She is passing flatus, no BM. Pt has not eaten since her procedure but has an appetite. Pt states her R shoulder pain has improved since the reduction and is at 5/10 with movement. Pt states her R lower leg is numb and she has no pain. Pt denies: H/A, vision changes, SOB, chest pain, N/V/D or syncope. Objective Objective: GENERAL: Pt is lying supine in bed comfortably. NAD. A+Ox4. IVF in place. RESP: Good respiratroy effort. CTAB. CARDIO: RRR, no MRG, S1/S2 audible. ABD: Soft, NTND, loud normoactive bowel sounds present throughout. : Shah catheter in place- clear yellow urine in bag. MUSC: Pt in right shoulder sling- radial pulse 2+ and symetric. No swelling or bruising noted. Cap refill <2 sec. Right lower leg wrapped with JG bandage, ice pack in place (dressing clean/dry/intact). Pt does not have any sensation in R lower extremity, although has full ROM of toes. Toes are warm, cap refill < 2 sec. Pulse non palpable 2/2 dressing. NEURO: Sensation intact throughout with the exception of the right lower extremity. Results Results: Laboratory Tests 07/23/17 1430: Urinalysis LIGHT H, Urine Color YEL, Urine Clarity HAZY H, Urine pH 6.5, Ur Specific [place] 1.020, Urine Protein NEG, Urine Ketones NEG, Urine Nitrite NEG, Urine Bilirubin NEG, Urine Urobilinogen 0.2, Ur Leukocyte Esterase NEG, Ur Microscopic SEDIMENT EXAMINED, Urine RBC RARE, Urine WBC 1-3 H, Ur Epithelial Cells FEW, Urine Bacteria FEW H, Urine Hemoglobin NEG, Urine Glucose NEG 07/23/17 1234: PT Cancelled, INR Cancelled, APTT Cancelled 07/23/17 1130: Anion Gap 15, Estimated GFR > 60, BUN/Creatinine Ratio 24.3, Glucose 158 H, Calcium 9.5, Total Bilirubin 0.3, AST 23, ALT 31, Alkaline Phosphatase 57, Creatine Kinase 118, Total Protein 7.5, Albumin 4.6, Globulin 2.9, Albumin/ Globulin Ratio 1.6, PT 11.5, INR 1.10, APTT 26, CBC w Diff NO MAN DIFF REQ, RBC 4.38, MCV 89.6, MCH 30.2, RDW 13.1, MPV 8.2, Gran % 80.6 H, Lymphocytes % 13.1 L, Monocytes % 4.7, Eosinophils % 1.2, Basophils % 0.4, Absolute Granulocytes 11.3 H, Absolute Lymphocytes 1.8, Absolute Monocytes 0.7 H, Absolute Eosinophils 0.2, Absolute Basophils 0.1, PUBS MCHC 33.8 Microbiology 07/23 1430 URINE ROUT: Urine Culture - RECD Assessment/Plan Assessment: Roya is a 57yo caucasain female post op day 1 s/p right closed shoulder reduction and right distal fibular open reduction after multitrauma fall . She had a lower leg nerve block (likely superficial fibular/peroneal nerve block) which continues to have effect contributing to lower leg numbness. XRays are indicative of unmended right humerus fracture although closed shoulder reduction was successful. She appears to be recovering well from the procedure and has no further questions/complaints at this time. Plan: PT consult this am. - depending on recommendations d/c shah. Order regular diet as tolerated. Continue IVF and pain meds as ordered.- anticipated increased pain in R LE today. Consult with Dr. Martel pertaining to R humeral fracture repair. Ramos Gandhi 07/24/17 0912: Resident Review Statement Resident Statement: amended to note Other Findings: see my noted from today. Jeff OKEEFE
--- NOTE | 2017-07-24 09:11 | PN- Orthopedic ---
See Addendum Subjective Subjective: Patient states right lower extremity is still numb after anesthetic block. She has no pain in the right leg. Right shoulder is mild to moderately painful and controlled with medication and sling. She has no other complaints, she is in good spirits Objective Vital Signs and I&Os Vital Signs Date Time Temp Pulse Resp B/P B/P Pulse O2 O2 Flow FiO2 Mean Ox Delivery Rate 07/24 0650 98.2 64 20 100/50 98 Nasal 2.0L Cannula 07/23 2059 98 Nasal 2.0L Cannula 07/23 1559 60 16 125/64 94 Room Air 07/23 1457 97.6 56 20 113/55 95 Room Air 07/23 1202 97.0 07/23 1038 97.0 60 16 169/91 98 Intake & Output 07/24 1600 07/24 0800 07/24 0000 07/23 1600 07/23 0800 07/23 0000 Intake Total 1280 320 120 Output Total 850 200 Balance 430 120 120 Intake, IV 800 200 Intake, Oral 480 120 120 Output, Urine 850 200 Patient 133 lb 133 lb Weight Weight Reported by Patient Measurement Method Physical Exam: Well-developed well-nourished no apparent distress. HEENT: Atraumatic, extraocular motion intact Neck: Supple, no lymphadenopathy Respiratory: No respiratory distress Extremities: Right shoulder, mild swelling and tenderness to the proximal humeral region. Neurovascularly intact right upper extremity, no deficits. Sling is intact Right lower extremity, dressing and splint clean dry and intact and in good position. She has numbness of the entire right lower leg, she cannot wiggle her toes, presumably due to the anesthetic block, she has normal vascular status of the right lower extremity, no pain with passive EHL motion Neuro: Alert and oriented x3 Psych: Mood affect normal, normal memory normal judgment. Skin: Warm and dry, no rash on exposed skin Results Last 48 Hours of Labs: Laboratory Tests 07/23 07/23 1430 1234 Coagulation PT Cancelled INR Cancelled APTT Cancelled Urines Urinalysis LIGHT H Urine Color (YEL,AMB,STR) YEL Urine Clarity (CLEAR) HAZY H Urine pH (5.0 - 8.0) 6.5 Ur Specific [place] (1.001 - 1.035) 1.020 Urine Protein (NEG,<30 MG/DL) NEG Urine Ketones (NEG) NEG Urine Nitrite (NEG) NEG Urine Bilirubin (NEG) NEG Urine Urobilinogen (0.1 - 1.0 EU/dl) 0.2 Ur Leukocyte Esterase (NEG) NEG Ur Microscopic SEDIMENT EXAMINED Urine RBC (0 - 5 /HPF) RARE Urine WBC (0 - 2 /HPF) 1-3 H Ur Epithelial Cells (NONE,FEW) FEW Urine Bacteria (NEG/NONE) FEW H Urine Hemoglobin (NEG) NEG Urine Glucose (N MG/DL) NEG 07/23 1130 Chemistry Sodium (137 - 145 mmol/L) 142 Potassium (3.5 - 5.1 mmol/L) 3.6 Chloride (98 - 107 mmol/L) 100 Carbon Dioxide (22 - 30 mmol/L) 27 Anion Gap (5 - 16) 15 BUN (7 - 17 mg/dL) 17 Creatinine (0.5 - 1.0 mg/dL) 0.7 Estimated GFR (>60 ml/min) > 60 BUN/Creatinine Ratio (7 - 25 %) 24.3 Glucose (65 - 99 mg/dL) 158 H Calcium (8.4 - 10.2 mg/dL) 9.5 Total Bilirubin (0.2 - 1.3 mg/dL) 0.3 AST (14 - 36 U/L) 23 ALT (9 - 52 U/L) 31 Alkaline Phosphatase (<127 U/L) 57 Creatine Kinase (30 - 135 U/L) 118 Total Protein (6.3 - 8.2 g/dL) 7.5 Albumin (3.5 - 5.0 g/dL) 4.6 Globulin (1.9 - 4.2 gm/dL) 2.9 Albumin/Globulin Ratio (1.1 - 2.2 %) 1.6 Coagulation PT (9.4 - 12.5 SEC) 11.5 INR (0.90 - 1.19) 1.10 APTT (25 - 37 SEC) 26 Hematology CBC w Diff NO MAN DIFF REQ WBC (4.8 - 10.8 /CUMM) 14.0 H RBC (4.20 - 5.40 /CUMM) 4.38 Hgb (12.0 - 16.0 G/DL) 13.2 Hct (37 - 47 %) 39.2 MCV (81.0 - 99.0 FL) 89.6 MCH (27.0 - 31.0 PG) 30.2 RDW (11.5 - 14.5 %) 13.1 Plt Count (130 - 400 /CUMM) 304 MPV (7.4 - 10.4 FL) 8.2 Gran % (42.2 - 75.2 %) 80.6 H Lymphocytes % (20.5 - 51.1 %) 13.1 L Monocytes % (1.7 - 9.3 %) 4.7 Eosinophils % (0 - 5 %) 1.2 Basophils % (0.0 - 2.0 %) 0.4 Absolute Granulocytes (1.4 - 6.5 /CUMM) 11.3 H Absolute Lymphocytes (1.2 - 3.4 /CUMM) 1.8 Absolute Monocytes (0.10 - 0.60 /CUMM) 0.7 H Absolute Eosinophils (0.0 - 0.7 /CUMM) 0.2 Absolute Basophils (0.0 - 0.2 /CUMM) 0.1 PUBS MCHC (33.0 - 37.0 G/DL) 33.8 Assessment/Plan Assessment/Plan Postop day #1 status post right ankle ORIF and right shoulder closed reduction Nonweightbearing right upper extremity and right lower extremity. Continue splint right lower extremity. Continue sling right upper extremity. Aspirin 325 mg by mouth twice a day for DVT prophylaxis. DC Mckeon catheter. PT/OT today. Perioperative antibiotics. DC IV fluids. Still with numbness to the right lower extremity from the anesthetic block, doubt compartment syndrome or nerve damage, we'll monitor for return of sensation and function elevate, ice Possible discharge today versus tomorrow depending upon pain control, physical therapy and bed availability as patient will require short-term rehabilitation facility due to her nonweightbearing status of the right upper and lower extremity for the next 6 weeks. Core Measures Venous Thromboembolism VTE Risk Factors Surgery No Mechanical VTE Prophylaxis d/t N/A MechProphylax Ordered No VTE Pharm Prophylaxis d/t NA PharmProphylax ordered
[2017-07-24] MEDS ORDERED: ACETAMINOPHEN500 M4 PO (09:16)
[2017-07-24] MEDS ORDERED: ASPIRIN325 M2 PO (09:16)
[2017-07-24] MEDS ORDERED: PERCOCET 5-3251 EACH PO (09:16)
--- NOTE | 2017-07-24 09:24 | Patient Discharge Instructions ---
Discharge Instructions General Discharge Information You were seen/treated for: Right distal fibula fracture and right proximal humerus fracture You had these procedures: Closed reduction of right proximal humerus and open reduction internal fixation of right distal fibular fracture Watch for these problems: Drainage or discharge from the wound, fever, flulike illness, chest pain, shortness of breath, worsening severe pain uncontrolled by pain medication Call Surgeon to remove: Stitches Do not soak the wound: Yes Other wound care: You may bathe, do not get the splint wet, cover with a plastic bag. Stay in the sling Keep the splint clean and dry, do not remove Elevate the right lower extremity on pillows while in bed. Nonweightbearing right lower extremity and right upper extremity for the next 6 weeks Range of motion of the right elbow wrist and hand to tolerance is allowed to avoid stiffness You will need to take aspirin for prevention of blood clots, 325 mg twice a day Special Instructions: Follow up in [address] Martel for xrays and wound check Diet Continue normal diet: Yes Activity Full Activity/No Limits: No Activity Limited to: No weight bearing Other activity limits: Nonweightbearing right upper and right lower extremities Additional ACTIVITY Info: Needs retirement facility as she is nonweightbearing right upper and right lower extremities Needs help with activities of daily living and prevention of deconditioning Acute Coronary Syndrome Inclusion Criteria At DC or during hospital stay patient has or had the following: ACS DIAGNOSIS No Discharge Core Measures Meds if any: Prescribed or Continued at Discharge Meds if any: NOT Prescribed or Continued at Discharge Congestive Heart Failure Inclusion Criteria At DC or during hospital stay patient has or had the following: CHF DIAGNOSIS No Discharge Core Measures Meds if any: Prescribed or Continued at Discharge Meds if any: NOT Prescribed or Continued at Discharge Cerebrovascular accident Inclusion Criteria At DC or during hospital stay patient has or had the following: CVA/TIA Diagnosis No Discharge Core Measures Meds if any: Prescribed or Continued at Discharge Meds if any: NOT Prescribed or Continued at Discharge Venous thromboembolism Inclusion Criteria VTE Diagnosis No VTE Type NONE VTE Confirmed by (Test) NONE Discharge Core Measures - Per Current guidelines, there needs to be overlap - treatment for the first 5 days of Warfarin therapy. - If discharged on Warfarin prior to 5 days of - overlap therapy, the patient will need to be - assessed for post discharge needs including - *Post discharge parental anticoagulation - *Warfarin and/or parental anticoagulation education - *Follow up date to check INR post discharge At least 5 days overlap therapy as Inpatient No Meds if any: Prescribed or Continued at Discharge Note: Overlap Therapy is Warfarin and Anticoagulant Meds if any: NOT Prescribed or Continued at Discharge
--- NOTE | 2017-07-24 09:27 | Surg Short-stay <48hrs Dis Sum ---
Visit Information Visit Dates Admission Date: 07/23/17 Attending MD Review Statement Attending Statement Attending MD Statement: examined this patient, discuss w/resident/PA/DESK OFFICER, agreed w/resident/PA/DESK OFFICER Surgical Short Stay DC Summary Admission Diagnosis: Right proximal humerus fracture status post closed reduction Right distal fibula fracture status post open reduction internal fixation Final Diagnosis: Same Procedure(s): See above Summary/Significant Findings: Patient was admitted through the emergency department after a fall, suffering a fracture of the right ankle which required operative fixation of the distal fibula as well as fracture of the right proximal humerus that was significantly displaced and required closed reduction in the operating room. She was admitted due to her nonweightbearing status of the right upper and lower extremity, received DVT prophylaxis with aspirin, infectious prophylaxis with Ancef IV perioperatively. Her pain was controlled and she was seen by physical therapy. Due to her nonweightbearing status of the right upper and lower extremities, it was deemed that [facility] facility was required and she was transferred to a [facility] facility for continued rehabilitation and aid in activities of daily living. Condition at Discharge: Good Discharge Disposition: SNF Discharge instructions provided to patient/family: Yes Post discharge follow-up plan: 10-14 days in office Continue splint to the right leg, do not remove, keep clean and dry, continue sling to the right arm Aspirin for DVT prophylaxis Pain medication as needed Elevate and ice the injured extremities
[2017-07-24 14:12] VITALS: BP 102/58
[2017-07-24 22:47] VITALS: BP 118/74
[2017-07-25 06:53] VITALS: BP 110/76
--- NOTE | 2017-07-25 07:03 | PN- Student ---
Socrates Fuller 07/25/17 0653: Subjective Subjective: Patient is in good spirits but states her pain is constant. She describes a 3/10 shoulder pain which is worsened to 8/10 with movement although it is tolerable with her current pain medication regimen. She is now able to move the toes on her right foot with full ROM, but continues to deny any pain. Patient is tolerating normal diet, admits to + flatus but denies BM. Mckeon catheter removed , pt urinating without difficulty. Denies: H/A, vision changes, SOB, chest pain, abd pain, NVD or syncope. Objective Objective: General: Pt lying supine in bed in NAD. A+Ox4. RESP: Good resp effort, CTAB. CARDIO: RRR, no MRG, S1 and S2 audible. ABD: Soft, NTND, loud normoactive bowel sounds audible. MUSC: Right arm in sling. 5/5 gas charger strength. Radial pulse intact +2. Cap refill < 2 seconds. Right lower extremity dressing clean dry and intact, wrapped with JG bandage. Ice pack place on top. Pt has full ROM of toes. Cap refill < 2 seconds. Pedal pulse non palpable 2/2 bandage. NEURO: Sensation intact throughout. Results Results: Laboratory Tests 07/23/17 1430: Urinalysis LIGHT H, Urine Color YEL, Urine Clarity HAZY H, Urine pH 6.5, Ur Specific Superior 1.020, Urine Protein NEG, Urine Ketones NEG, Urine Nitrite NEG, Urine Bilirubin NEG, Urine Urobilinogen 0.2, Ur Leukocyte Esterase NEG, Ur Microscopic SEDIMENT EXAMINED, Urine RBC RARE, Urine WBC 1-3 H, Ur Epithelial Cells FEW, Urine Bacteria FEW H, Urine Hemoglobin NEG, Urine Glucose NEG 07/23/17 1234: PT Cancelled, INR Cancelled, APTT Cancelled 07/23/17 1130: Anion Gap 15, Estimated GFR > 60, BUN/Creatinine Ratio 24.3, Glucose 158 H, Calcium 9.5, Total Bilirubin 0.3, AST 23, ALT 31, Alkaline Phosphatase 57, Creatine Kinase 118, Total Protein 7.5, Albumin 4.6, Globulin 2.9, Albumin/ Globulin Ratio 1.6, PT 11.5, INR 1.10, APTT 26, CBC w Diff NO MAN DIFF REQ, RBC 4.38, MCV 89.6, MCH 30.2, RDW 13.1, MPV 8.2, Gran % 80.6 H, Lymphocytes % 13.1 L, Monocytes % 4.7, Eosinophils % 1.2, Basophils % 0.4, Absolute Granulocytes 11.3 H, Absolute Lymphocytes 1.8, Absolute Monocytes 0.7 H, Absolute Eosinophils 0.2, Absolute Basophils 0.1, PUBS MCHC 33.8 Microbiology 07/23 1430 URINE ROUT: Urine Culture - RES Assessment/Plan Assessment: Roya is a 57yo caucasain F POD2 s/p right closed shoulder reduction and right open distal fibular reduction. Pt RLE beginning to show more functionality as nerve block wears off- she is aware of likely pain increase and knows to talk to staff if this becomes an issue. Pt appears to be recovering well from the procedure and does not have any questions or concerns at this time. Plan: Continue regular diet. Order polyethylene glycol and docusate to promote BM. Continue pain med regimen as ordered. PT consult this am. Consult with Dr. Martel r/t future RUE fracture repair (?) Ramos Gandhi 07/25/17 0844: Resident Review Statement Resident Statement: examined this patient Other Findings: Patient comfortable, pain better controlled, has full sensation out the right lower extremity, no deficits, no clinical signs of compartment syndrome. Splint intact, clean and dry and in good position. stable for DC, Awaiting bed availability at [facility] Bowel regimen ordered Nonweightbearing for 6 weeks right upper and lower extremity DVT prophylaxis
[2017-07-25] MEDS ORDERED: DILAUDID2 M1 PO (10:47)
--- NOTE | 2017-07-25 11:39 | Surg Short-stay <48hrs Dis Sum ---
Visit Information Visit Dates Admission Date: 07/23/17 Discharge Date: 07/25/17 Surgical Short Stay DC Summary Admission Diagnosis: Right proximal humerus fracture status post closed reduction Right distal fibula fracture status post open reduction internal fixation Final Diagnosis: Same Procedure(s): See above Summary/Significant Findings: Patient was admitted through the emergency department after a fall, suffering a fracture of the right ankle which required operative fixation of the distal fibula as well as fracture of the right proximal humerus that was significantly displaced and required closed reduction in the operating room. She was admitted due to her nonweightbearing status of the right upper and lower extremity, received DVT prophylaxis with aspirin, infectious prophylaxis with Ancef IV perioperatively. Her pain was controlled and she was seen by physical therapy. Due to her nonweightbearing status of the right upper and lower extremities, it was deemed that custodial facility was required and she was transferred to a custodial facility for continued rehabilitation and aid in activities of daily living. Condition at Discharge: Good Discharge Disposition: SNF Discharge instructions provided to patient/family: Yes Post discharge follow-up plan: 10-14 days in office Continue splint to the right leg, do not remove, keep clean and dry, continue sling to the right arm Aspirin for DVT prophylaxis Pain medication as needed Elevate and ice the injured extremities
[2017-07-25 14:47] VITALS: BP 122/68
[2017-07-25 22:30] VITALS: BP 118/60
[2017-07-26 06:52] VITALS: BP 116/56
--- NOTE | 2017-07-26 07:48 | PN- Orthopedic ---
Subjective Subjective: Offering no complaints presently. Had bm overnight. Is anticipating dc to str. Pain controlled. No CP, SOB, or dyspnea. No nausea or vomitting. Is NWB to right upper/lower extremities. Objective Vital Signs and I&Os Vital Signs Date Time Temp Pulse Resp B/P B/P Pulse O2 O2 Flow FiO2 Mean Ox Delivery Rate 07/26 0652 98.6 76 20 116/56 97 07/25 2230 99.2 73 20 118/60 94 Room Air 07/25 1447 98.3 69 18 122/68 96 Intake & Output 07/26 0800 07/26 0000 07/25 1600 07/25 0800 07/25 0000 07/24 1600 Intake Total 480 240 177 052 2608 1350 Output Total 225 217 5123 Balance 480 240 800 100 770 0 Intake, IV 20 150 Intake, Oral 480 240 039 419 2798 1200 Number 0 0 Bowel Movements Output, Urine 779 494 9750 Physical Exam: General: AAO x3, no acute distress Cards: RRR, s1s2 Pulm: CTA bilaterally ABD: Non-tender, non-distended Ext: Moves all extremities, rue in sling. Neuro/vascular intact bilateral upper/lower extremities. Dressing to RLE intact. L calf soft and non-tender, R in splint. Assessment/Plan Assessment/Plan This is a 57 year old female, POD 3 s/p ORIF R tib/fib fx with non-op management of R shoulder fx. -Continue current pain regimen -Continue NWB status R upper/lower extremities -DVT ppx: ASA 325 bid -Follow up with Dr. Martel in 1 week for wound check and xrays -Discharge to str today Core Measures Venous Thromboembolism VTE Risk Factors Surgery No Mechanical VTE Prophylaxis d/t N/A MechProphylax Ordered No VTE Pharm Prophylaxis d/t NA PharmProphylax ordered
[2017-07-26 10:28] VITALS: BP 116/56
== END 2017-07-26 12:15 | DRG 493 ==
LOC: DELPENDDIS → ERH 10:28 → 2NB 12:34 → ERHI 12:34 → ENRESERV 16:41 → 2NB 18:30 → ENTRNSPT 20:25 → EDTRNSPTSTS 20:28 → CMPTRNSPT 20:54 → ENPENDDIS 07-25 11:49 → 2NB 07-25 20:01
PROVIDERS: Physician Assistant
PROC: 0QSJ04Z Reposition Right Fibula with Internal Fixation Device, Open Approach (ICD-10-PCS; principal; 2017-07-23)
PROC: 0PSCXZZ Reposition Right Humeral Head, External Approach (ICD-10-PCS; 2017-07-23)
DX: S82.61XA Displaced fracture of lateral malleolus of right fibula, initial encounter for closed fracture (principal); S42.201A Unspecified fracture of upper end of right humerus, initial encounter for closed fracture; E03.9 Hypothyroidism, unspecified; W00.0XXA Fall on same level due to ice and snow, initial encounter; S83.001A Unspecified subluxation of right patella, initial encounter
CPT/HCPCS: 2NBSP; 73030-RT; 73560-RT; 73600-RT; 73610-RT; 81001; 87086; 87147; 93005; 93010; 96374; 96375; 97110-GO; 97161-GP; 97166-GO; 97530-GO; C1713; J0131; J0690; J1100; J1630; J1885; J2405